=== PATIENT | male | born 1980 | race Caucasian/White ===

== ENCOUNTER 2019-06-11 10:57 | Emergency (ER) | payer SELFPAY ==
[~2019-06-11] VITALS: Ht 182.8 cm; Wt 101.0 kg
--- NOTE | 2019-06-11 11:23 | ED Integumentary General ---
General Chief Complaint: Skin/Wound Problems Stated Complaint: LT LEG ABSCESS Nursing Triage Note: Patient c/o red, painful, raised area to left ankle/lower leg area. States he doesn't know if it is an infected mosquito bite or a spider bite. Reports that he noticed it 4 days ago and has been trying to pop/justen it. There is now a scabbed area in the center and the redness has increased. Source: patient Exam Limitations: no limitations History of Present Illness Date Seen by Provider: Jun 11, 2019 Time Seen by Provider: 11:10 Initial Comments The patient is a pleasant 39-year-old male presents for evaluation of a painful red lesion to the left medial ankle which he noticed a few days ago. He states there is been a small amount of clear drainage coming out of it. The area is red with a scab in the center. The patient does admit to trying to squeeze and pop the area. He never saw any purulence. He has no history of MRSA. He was concerned this could be an infected insect or spider bite. He is alert and oriented 4, calm, and appears to be in no distress this time. He is having no difficulty or pain when trying to ambulate. He denies fevers or chills, nausea or vomiting, abdominal pain, any other lesions, or any other complaints. Timing/Duration: other (4 days) Severity: moderate Location: extremities (left medial ankle) Possible Cause: no cause identified Modifying Factors: improves with other (topical antibiotic ointment) Associated Symptoms: denies symptoms Allergies and Home Medications Allergies Coded Allergies: No Known Drug Allergies (Unverified , 06/11/19) Patient Home Medication List Home Medication List Reviewed: Yes Review of Systems Review of Systems Constitutional: no symptoms reported EENTM: no symptoms reported Respiratory: no symptoms reported Cardiovascular: no symptoms reported Gastrointestinal: no symptoms reported Genitourinary: no symptoms reported Musculoskeletal: no symptoms reported Skin: lesions (left ankle red slightly painful lesion) Psychiatric/Neurological: No Symptoms Reported Endocrine: No Symptoms Reported Hematologic/Lymphatic: No Symptoms Reported All Other Systems Reviewed Negative Unless Noted: Yes Past Rkokfna-Dtfbik-Gyfhao Hx Past Med/Social Hx: Reviewed Nursing Past Med/Soc Hx Patient Social History Alcohol Use: Occasionally Uses Recreational Drug Use: No Smoking Status: Current Everyday Smoker Type Used: Cigarettes 2nd Hand Smoke Exposure: No Recent Foreign Travel: No Contact w/Someone Who Travel: No Recent Infectious Disease Expo: No Recent Hopitalizations: No Physical Abuse: No Sexual Abuse: No Mistreated: No Fear: No Seasonal Allergies Seasonal Allergies: No Past Medical History Surgeries: Yes Tonsillectomy Respiratory: No Cardiac: No Neurological: No Genitourinary: No Gastrointestinal: No Musculoskeletal: No Endocrine: No HEENT: No Cancer: No Psychosocial: No Integumentary: No Blood Disorders: No Physical Exam Vital Signs Vital Signs - First Documented 06/11/19 11:03 Temp 36.0 Pulse 65 Resp 18 B/P (MAP) 129/70 (89) Pulse Ox 98 O2 Delivery Room Air Capillary Refill : Less Than 3 Seconds General Appearance: WD/WN, no apparent distress HEENT: PERRL/EOMI, TMs normal, pharynx normal Neck: non-tender, full range of motion Cardiovascular: regular rate, rhythm, no edema, no JVD Respiratory: chest non-tender, no respiratory distress, no accessory muscle use Extremities: normal range of motion, no pedal edema, other (lesion with redness and warmth to left medial ankle, no joint effusino, area is indurated without fluctuance or drainage, approx 3m in diameter, dark center scab present) Neurologic/Psychiatric: alert, normal mood/affect, oriented x 3 Skin: normal color, warm/dry Progress/Results/Core Measures Results/Orders Vital Signs/I&O 06/11/19 11:03 Temp 36.0 Pulse 65 Resp 18 B/P (MAP) 129/70 (89) Pulse Ox 98 O2 Delivery Room Air Blood Pressure Mean: 89 Progress Progress Note : Progress Note @1125 - patient advised to continue applying topical antibiotic ointment to the lesion in addition to taking the prescribed medications. Advised the patient to follow up with his PCP in the next 1-2 days and to return to the emergency Department immediately. The patient expresses verbal understanding and agreement with plan and is stable for discharge. Departure Impression Primary Impression: Infected insect bite of ankle Disposition: 01 HOME, SELF-CARE Condition: Stable Departure-Patient Inst. Decision time for Depature: 11:26 Referrals: NO,LOCAL PHYSICIAN (PCP/Family) Primary Care Physician Patient Instructions: Skin Abscess, Cellulitis (Skin Infection), Child (DC), MRSA (DC) Add. Discharge Instructions: Take the medication as prescribed. Follow-up with your doctor in the next 1-2 days. Return to the emergency Department immediately for new or worsening symptoms. Scripts Cephalexin (Keflex) 500 Mg Capsule 500 MG PO TID for 10 Days, #30 CAP Prov: HIPOLITO DASH DO 06/11/19 Sulfamethoxazole/Trimethoprim (Bactrim Ds Tablet) 1 Each Tablet 1 EACH PO BID for 10 Days, #20 TAB Prov: HIPOLITO DASH DO 06/11/19 HIPOLITO DASH DO Jun 11, 2019 11:23
[2019-06-11] MEDS ORDERED: SULF1TAB35 PO (11:28)
[2019-06-11] MEDS ORDERED: CEPH-507 PO (11:28)
[2019-06-11 11:40] VITALS: BP 129/70
== END 2019-06-11 11:40 | disposition home or self-care (01) ==
LOC: ER FS 10:59
DX: S90.562A Insect bite (nonvenomous), left ankle, initial encounter (principal); L08.89 Other specified local infections of the skin and subcutaneous tissue; F17.210 Nicotine dependence, cigarettes, uncomplicated; Z90.89 Acquired absence of other organs; W57.XXXA Bitten or stung by nonvenomous insect and other nonvenomous arthropods, initial encounter
CPT/HCPCS: 99282